=== PATIENT | male | born 1960 | race Caucasian/White ===

== ENCOUNTER 2023-12-08 13:51 | Inpatient (IN) | payer MEDICARE, OTHER, SELFPAY ==
[2023-12-08] VITALS (18 sets, daily range): BP systolic 109–170; BP diastolic 68–106; BMI 29.7; BMI 29.0
--- NOTE | 2023-12-08 11:30 | ED.PDOC.TRB ---
ED Provider Triage
-
Patient seen by provider in Triage?: Seen in Triage
Initial rapid assessment performed in triage to facilitate ED workup
63-year-old male with history of coronary artery disease status post CABG x 5 and subsequent stenting presents to the emergency department for evaluation of exertional chest discomfort and shortness of breath ongoing for the past month. Symptoms
remain somewhat present at rest and do not fully resolve. Currently reports mild shortness of breath but no chest pain. Feels comparable to his prior angina.
GEN: Well appearing, NAD, WDWN
HEENT: Oral mucosa moist, no scleral icterus
Cardiac: Regular rate
Lung: No respiratory distress, no tachypnea
MSK: No gross deformity or injuries
Skin: Good color, no pallor or jaundice, no rashes
Neuro: AO x3, moves all extremities freely
Psych: Calm, cooperative
Assessment/plan: Unstable angina. Initial EKG appears nonischemic. Check cardiac labs
[2023-12-08 11:46] LABS: % Basophils 0.7 % (0-2); % Eosinophils 6.7 % (0-6); % Immature Granulocytes 0.2 % (0-0.5); % Monocytes 7.7 % (1.7-9.3); % Neutrophils 65.7 % (42.2-75.2); Absolute Basophils 0.1 10^3/uL (0-0.2); Absolute Eosinophils 0.6 10^3/uL (0-0.7); Absolute Lymphocytes 1.7 10^3/uL (1.2-3.4); Absolute Monocytes 0.7 10^3/uL (0.1-0.6); Absolute Neutrophils 5.9 10^3/uL (1.4-6.5); Hematocrit 43.5 % (39.0-52.0); Hemoglobin 14.8 g/dL (13.0-18.0); Mean Corpuscular Hgb 30.1 pg (27.0-31.0); Mean Corpuscular Volume 88.4 fL (80.0-94.0); Mean Platelet Volume 8.8 fL (7.4-10.4); Nucleated Red Blood Cells % 0 % (-); Platelet Count 253 10^3/uL (130-400); Red Blood Cell Count 4.92 10^6/uL (4.70-6.10); Red Cell Dist. Width 13.2 % (11.5-14.5)
[2023-12-08 12:19] LABS: ALT (SGPT) 22 U/L (0-50); AST (SGOT) 28 U/L (17-59); Albumin 4.6 g/dl (3.5-5.0); Alkaline Phosphatase 59 U/L (38-126); Blood Urea Nitrogen 21 mg/dl (9-20); Calcium 9.5 mg/dl (8.4-10.2); Carbon Dioxide 22 mmol/L (22-30); Chloride 104 mmol/L (98-107); Glucose 104 mg/dl (70-99); Potassium 4.3 mmol/L (3.5-5.1); Sodium 140 mmol/L (135-145); Total Bilirubin 0.7 mg/dl (0.2-1.3); Total Protein 7.2 g/dl (6.3-8.2); Troponin I 0.214 ng/ml; eGFR > 60.00
--- NOTE | 2023-12-08 12:53 | ED.GENMED ---
History of Present Illness
General
Chief Complaint: Breathing Problem
Time Seen by Provider: 12/08/23 12:21
History of Present Illness
History of Present Illness:
63-year-old man with history of CAD with stents and bypasses, hypertension presenting to the emergency department chest pain. Patient states for the past month he has been having chronic chest pain that is worse with exertion. Has been having some
dyspnea on exertion as well. It does feel similar to when he needed his stents before. He is having some left arm numbness tingling. He did see Dr. Lutz and had a carotid ultrasound done which was normal. He saw him today in the office and
patient was brought in here given the symptoms. He did take aspirin. He did not take any nitroglycerin.
Past History
Past History
ED Past Medical History: CAD, HTN, Hypercholesterolemia, CA and Other (Cervical disc disease, pancreatitis)
ED Past Surgical History: Cardiac (CABG, STENTs), Orthopedic (Cervical laminectomy 12/06/2013, right total knee replacement) and Tonsilectomy
Social History
Tobacco: Former smoker
Alcohol: None
Drug: None
Personal:
Living: with family
Employment: Employed
Family History
Family History: Early CAD and Other (CAD, hypertension, gallbladder issues)
Phy Exam
Physical Exam
Physical Exam:
GENERAL: in no acute distress
HEENT: normocephalic, extraocular movements intact, moist oral mucosa
NECK: normal inspection
RESPIRATORY: no respiratory distress, clear to auscultation bilaterally
CARDIOVASCULAR: regular rate and rhythm, 2+ radial pulses bilaterally
ABDOMEN/: soft, non-distended, non-tender to palpation, no rebound or guarding
EXTREMITIES: non-tender, no edema/swelling
NEUROLOGIC: awake and alert, moves all extremities
SKIN: warm
Scores
Heart Failure Risk
Heart Failure Risk Score: Not Applicable
Course
Orders/Labs/Results
Orders:
Orders
12/08/23 11:21
EKG [Electrocardiogram (*1)] Urgent
Reason for Study: Shortness of Breath
CR Chest - 2 Views Urgent
Comment:
Reason For Exam: short of breath
12/08/23 11:22
EKG- Treatment ONCE
12/08/23 11:37
Complete Blood Count/With Diff Urgent
Comprehensive Metabolic Panel Urgent
Prothrombin Time Urgent
Troponin I Urgent
12/08/23 12:21
Electrocardiogram (*1) Urgent
Reason for Study: Chest Pain
12/08/23 12:22
EKG- Treatment ONCE
12/08/23 12:50
Nitroglycerin Sublingual [Nitrostat (Sublingual)] 0.4 mg SL [id number] PRN
12/08/23 12:57
PTT Urgent
Comment: Obtain baseline before beginning heparin infusion if not already collected
Heparin 4,000 units IV NOW STA
Pharmacy Request to Place See Dose Instructions PO NOW STA
Discontinue all Active Warfarin orders?: Yes
Nursing to Place Non Medication Order As Directed
Physician Order: PTT 6 hours after initial start of Heparin infusion
12/08/23 12:59
Portable Chest Xray [CR Chest Portable - 1 View] Urgent
Comment:
Reason For Exam: chest pain
Reason Study Needs to be Portable: Patient Unstable
12/08/23 13:00
Heparin 66162 Units/250 ml 25,000 units in 250 ml IV PER PROTOCOL
Weight to be used for heparin protocol in kilograms (kg):: 102
Protocol:: Cardiac Tx/Acute Coronary
PTT Goal Range to be used:: PTT 73 to 111 seconds
Order type:: Initial
INITIAL Infusion Dose (UNITS/KG/hr) & then follow protocol:: 15 units/kg/hr
Infusion Dose in UNITS/hr & then follow protocol (UNITS/hr):: 1,500
INFUSION RATE in mL/hr & then follow protocol (mL/hr):: 15
PTT less than or equal to 64 seconds:: Increase rate by 200 units/hr (+ 2 mL/hr)
PTT 64.1 to 72.9 seconds:: Increase rate by 100 units/hr (+ 1 mL/hr)
PTT 73 to 111 seconds:: Target Range. No change in rate.
PTT 111.1 to 130.9 seconds:: Decrease rate by 100 units/hr (- 1 mL/hr)
PTT 131 to 199.9 seconds:: HOLD for 1 hr. Then decrease rate by 200 units/hr (- 2 mL/hr)
PTT greater than or equal to 200 seconds:: HOLD for 2 hrs & Notify Provider. Then decrease by 200 units/hr (-
2 mL/hr)
Lab follow-up:: Each change, PTT q6h until 2 consecutive are therapeutic. Then PTT
daily.
Pharmacy Request to Place See Dose Instructions IV DIRECTED
Abnormal Lab Results
12/08/23
11:37
Absolute Monos (auto) 0.7 H 10^3/uL
(0.1-0.6)
Lymphocytes % 19.0 L %
(20.5-51.1)
Eosinophils % 6.7 H %
(0-6)
BUN 21 H mg/dl
(9-20)
Glucose 104 H mg/dl
(70-99)
Troponin I 0.214 H* ng/ml
12/08/23 11:37
12/08/23 11:37
Vital Signs
Initial and Last Documented VS:
Initial Vital Signs
Pulse Resp BP Pulse Ox
79 20 140/86 95
12/08/23 11:28 12/08/23 11:28 12/08/23 11:28 12/08/23 11:28
Last Documented Vital Signs
Temp Pulse Resp BP Pulse Ox
97.6 F 71 14 138/82 98
12/08/23 11:32 12/08/23 12:33 12/08/23 12:33 12/08/23 12:00 12/08/23 12:44
MDM/Problems Addressed
Differential Diagnosis Includes:
63-year-old male with history of CAD with stents and bypasses, hypertension presenting to the emergency department with chest pain that is exertional as well as dyspnea on exertion. Vitals here are unremarkable and exam is reassuring. Initial EKG
per my interpretation without any ST changes. He does state that is very similar to when he required stents. I am concerned about ACS versus NSTEMI. History and exam not consistent with dissection or PE. Initial blood work obtained prior to
evaluation does show significantly elevated troponin. Will obtain delta. I did repeat EKG and there were no new changes per my interpretation. Chest x-ray pending. Will give nitro. He did take aspirin this morning. Discussed with cardiology
who is in agreement with heparin drip. Discussed with hospitalist team who accepted patient to their service
*Critical Care Note
Total Time (30-74mins, 75-104mins- exclusive of procedures): Not Applicable
ED Attending Note
-
Portions of this chart may have been created with voice recognition software.� Occasional wrong word or��sound alike� substitutions may have occurred due to the inherent limitations of voice recognition software.
Discharge Plan
Departure
Patient Disposition: Admit
Date of Disposition: 12/08/23
Time of Disposition: 13:01
Presentation/result/management discussed w/ accepting MD/DO: Hospitalist
Discharge Problem:
Acute non-ST elevation myocardial infarction (NSTEMI)
Prescriptions:
No Action
metoprolol tartrate 25 MG tablet
25 mg PO DAILY
aspirin 81 MG tablet,chewable
81 mg PO DAILY
fluoxetine 20 MG capsule
60 mg PO DAILY
amlodipine 10 MG tablet
10 mg PO DAILY Qty: 30 0RF
gabapentin 100 MG capsule
100 mg PO TID Qty: 90 0RF
rosuvastatin [Crestor] 20 MG tablet
20 mg PO DAILY Qty: 30 0RF
prednisone 20 MG tablet
20 mg PO DAILY
codeine-guaifenesin 5 ML liquid
5 ml PO PRN PRN (Reason: cough)
levofloxacin [Levaquin] 500 MG tablet
500 mg PO DAILY
albuterol sulfate [ProAir HFA] 8.5 GM HFA aerosol inhaler
2 puff IH Q4HPRN PRN (Reason: asthma)
Calcium
1 tab PO DAILY
Oxycodone-Acetaminophen 5-325
DAILY
ondansetron 4 mg tablet,disintegrating
4 mg PO DAILY PRN (Reason: nausea and vomiting) 5 Days Qty: 14 0RF
Interventions
Interventions:
*Risk Screen - Suicide Last Done: 12/08/23 11:28
*General Assessment Last Done: 12/08/23 11:28
*Neglect/Abuse Screening Last Done: 12/08/23 11:28
ED- Fall Risk Assessment Last Done: 12/08/23 12:44
ED- Cardiac Assessment Last Done: 12/08/23 12:44
ED- Pulmonary Assessment Last Done: 12/08/23 12:44
Discharge Date and Time
Print Language: CROATIAN
--- NOTE | 2023-12-08 12:57 | CON.CAR ---
Addendum entered and electronically signed by Casey Hickey MD 12/08/23 15:03:
I saw and examined the patient.
The KIDNEY PULLER or PA's note was reviewed and I agree with the note.
Comment: General: Well developed, well nourished in NAD.
Neck: Supple, no JVD, HJR, carotids +2 B/L, no bruits bilaterally.
Heart: Non displaced PMI, RRR, no murmurs, No S3, S4, no rubs.
Lungs: Scattered rhonchi
Abdomen: Normal bowel sounds, soft, non-tender, non-distended.
Extremities: No clubbing, cyanosis or edema bilaterally.
Neuro: Grossly nonfocal, awake, alert and oriented x3.
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
chronic pain syndrome on oxycodone. He has had chest discomfort over the past several days. Heaviness is worse with exertion and can be worse with taking a deep breath. He had a severe episode approximately 2 weeks ago. He was being seen by
vascular and noted chest discomfort and was sent to the ER. Troponin was 0.21. He has discomfort at present but feels it may be due to not getting his oxycodone
He is ruled in for non-STEMI. He has persistent chest discomfort. He has multiple cardiac prior events and strong family history of CAD and noncompliant with follow-up with no office visit since 2020.
Will start IV heparin. Explained the risk and benefits of cardiac catheterization and stenting in detail and agrees to proceed. Reviewed with interventional cardiology.
Original Note:
Consultation
Consultation Request
Date/Time Consultation Requested: 12/08/23, 1255
Date/Time Consultation Performed: 12/08/23 1258
Requesting Provider: Hazel Brandon,
Performing Provider: PEE Gallardo for Dr Hickey
Reason for Consultation: chest pain
Medical History
-
History of Present Illness:
63-year-old male with history of coronary artery disease status post FL and CABG x 5 2012 in [place] (SVG-RCA; SVG-OM2; GOLDSTEIN-LAD; SVG-PDA and SVG-LAD) (had apical mural thrombus following FL and cardiomyopathy which is now resolved), cardiac
stents on 11/21/19 (S/P PCI with BENNIE to prox. circ and PTCA to OM1) at [facility]; mixed HLD, hypertension, carotid stenosis, chronic pain syndrome on Oxycodone. For the past month he's had a constant chest heaviness substernally, radiating to the
left shoulder and back. Heaviness is worse with exertion, and at the point he is having it with any activity. Pain worse with deep inspiration. He has had associated shortness of breath, and for the past 2 days has had diaphoresis and nausea. He
has intermittant chest fluttering, no syncope. He was at a vascular appointment today for surveillance follow-up of his carotid stenosis and reported shortness of breath, chest tightness, and heart skipping. He was advised to go to the ED for
evaluation. He currently reports 7/10 chest pain, he rec'd one SL NTG with no improvement in symptoms. He rec'd his usual ASA
initial troponin 0.214
Initial EKG 12/08/2023 1126: Normal sinus rhythm inferior infarct cannot rule out anterolateral infarct
Repeat EKG 12/08/2023 1232: Normal sinus rhythm inferior infarct cannot rule out anterolateral infarct
Compared both EKGs to most recent EKG 02/02/2021: No significant change
He previously saw Dr Young but has not seen a singe winder in a couple years. He has been on ASA, Plavix, Toprol.
PMH:
Coronary artery disease status post FL/CABG x , 2012, stenting BENNIE prox CIRC, PTCA OM
Hypertension
hyperlipidemia
Apical mural thrombus following FL-previously on Warfarin- stopped warfarin on his own in 2016 per chart review)
cardiomyopathy following FL, CABG 2012 - resolved
Left carotid stenosis
chronic pain syndrome due to neck/back pain- oxycodone q 4 hrs
pancreatitis 12/10- admission to
Past Medical History
Past Medical History: Other (as above)
Past Surgical History: Orthopedic (R knee), Tonsilectomy and Other (hernia, herniated discs)
Social History
Tobacco: Former Smoker (quit 2012, smoked 20 yrs, 1.5 ppd)
Personal:
Family History
Family History: Early CAD (father FL 35) and CAD (mother FL 65, brother with stents)
Allergies / Home Medications
Allergy/AdvReac Type Severity Reaction Status Date / Time
No Known Allergies Allergy Verified 12/08/23 11:33
�Medication �Instructions �Recorded �Confirmed �Type
metoprolol tartrate 25 mg tablet 25 mg PO DAILY Arrhythmia 11/21/19 02/02/21 History
aspirin 81 mg chewable tablet 81 mg PO DAILY Blood clot 12/06/19 02/02/21 History
prevention/tx
fluoxetine 20 mg capsule 60 mg PO DAILY Mental 12/06/19 02/02/21 History
Health/Anxiety
amlodipine 10 mg tablet 10 mg PO DAILY #30 tabs 11/11/20 02/02/21 Rx
gabapentin 100 mg capsule 100 mg PO TID #90 caps 11/11/20 02/02/21 Rx
rosuvastatin 20 mg tablet (Crestor) 20 mg PO DAILY #30 tabs 11/11/20 02/02/21 Rx
Calcium 1 tab PO DAILY Supplement 02/02/21 02/02/21 History
Oxycodone-Acetaminophen 5-325 DAILY Pain 02/02/21 History
albuterol sulfate 90 mcg/actuation 2 puff IH Q4HPRN PRN asthma 02/02/21 02/02/21 History
aerosol inhaler (ProAir HFA)
codeine 10 mg-guaifenesin 100 mg/5 5 ml PO PRN PRN cough 02/02/21 02/02/21 History
mL oral liquid
levofloxacin 500 mg tablet 500 mg PO DAILY Infection 02/02/21 02/02/21 History
(Levaquin)
prednisone 20 mg tablet 20 mg PO DAILY Lung/breathing 02/02/21 02/02/21 History
issues
ondansetron 4 mg disintegrating 4 mg PO DAILY PRN nausea and 12/17/21 Rx
tablet vomiting 5 days #14 tabs
Review of Systems
-
History Source: Patient
All other systems: Negative unless noted
Physical Exam
Vital Signs
Temp Pulse Resp BP Pulse Ox
97.6 F 71 14 138/82 98
12/08/23 11:32 12/08/23 12:33 12/08/23 12:33 12/08/23 12:00 12/08/23 12:44
Lab Results
12/08/23 11:37
12/08/23 11:37
Troponin I 0.214 ng/ml H* 12/08/23 11:37
Impression / Plan
-
PCP:Waldemar Moser MD
Primary singe winder: none current, former Dr Young
Impression:
chest pain x 1 month
CAD s/p CABG 2012 and stenting 10/2019
elevated troponin
FL 2012
cardiomyopathy 2012-resolved
HTN
hyperlipidemia
apical thrombus 2012
carotid stenosis
chronic pain syndrome
Previous cardiac diagnostic studies:
cardiac cath 11/21/2019 (): grafts: GOLDSTEIN-LAD patent, SVG-RCA 50% prox, SVG-OM2 patent, SVG-poss PDA 100% occluded, SVG-poss apical LAD 100% occluded
[place] vessels: D1 90% mid- BENNIE placed; OM1 90% prox- PTCA; circ beyond OM1 80%, RCA 100%,distal fills via patent SVG-RCA
Echo: 01/2019: EF 55-60%, mild cLVH, focal apical AK w/ thrombus noted, [place] 4.3- unchanged in size
Echo 07/2013: laminated apical thrombus EF 45-50%
Echo 06/2014 EF 50-55%, apical AK with repaired apical thrombus in LV
Echo 02/25/16: EF 55%
Plan:
CAD -
pt with one month history of progressively worsening chest heaviness, worse with exertion. Initial troponin elevated. Initial EKG without change from baseline. Admit for ACS, NSTEMI
-trend troponins and EKG
-starting heparin
-likely will need cardiac cath
-check echo
-SL NTG
-ASA/Plavix
-beta lc
-eventually start statin
apical thrombus
-occurred after FL in 2012, was on Warfarin in distant past, has been off since at least 2015 with stable appearing thrombus on echos
-checking echo
HTN-
-BPs currently well controlled
-cont Metoprolol
carotid stenosis -
-follows with Dr Lutz - had f/u today, sounds like stable carotid dz but will get records.
chronic pain
-pt reports he's on oxycodone q 4 hr for cervical spine pain, s/p previous fusion C6-C7
Data Reviewed
-
EKG: Tracing Personally Visualized and interpreted
Medical Tests (Nuc Med, Echo etc): Report Reviewed by me
Labs: Labs Reviewed by me
[2023-12-08] MEDS: NITROSTAT (SUBLINGUAL) 0.4 MG SL (13:04)
--- NOTE | 2023-12-08 13:05 | HPS.HSE ---
Family Physician
-
Family Physician:
Chief Complaint
-
Exertional chest pain
History of Present Illness
HPI: 63-year-old male with PMH CAD s/p CABG and subsequent cardiac stenting, hypertension, hyperlipidemia; p/w exertional chest discomfort and shortness of breath ongoing for the past month.
His symptoms remain at rest today hence presented to the ER. He states that this feels like his prior myocardial infarction.
He denies to other symptoms.
Admit for CP for ACS work up.
Medical History
Past Medical History
Past Medical History: Reports Other
Additional Past Medical History:
CAD s/p CABG and subsequent cardiac stenting
hypertension
hyperlipidemia
Past Surgical History: Reports Other
Additional Past Surgical History:
Right knee replacement
Spinal fusion
Hernia surgery
Nasal septum repair
Right ankle surgery
Cardiac bypass surgery
Social History
Tobacco: Former Smoker
Alcohol: Former
Family History
Family History: Not pertinent
Allergies / Home Medications
Allergies reflects when Allergies were last updated in [facility].
Home Medications with original date entered in [facility]
Allergy/Medication List:
Allergies
Allergy/AdvReac Type Severity Reaction Status Date / Time
No Known Allergies Allergy Verified 12/08/23 11:33
Home Medications
aspirin 81 mg chewable tablet 81 mg PO DAILY Blood clot prevention/tx 12/06/19
fluoxetine 20 mg capsule 60 mg PO DAILY Mental Health/Anxiety 12/06/19
Metoprolol 25 mg PO DAILY 12/08/23
clopidogrel 75 mg tablet (Plavix) 75 mg PO DAILY 12/08/23
oxycodone 15 mg tablet 15 mg PO Q4HPRN PRN severe pains 12/08/23
Review of Systems
-
Cardiac: Reports See HPI and Chest Pain
Physical Exam
Vital Signs
Vital Signs
Temp Pulse Resp BP Pulse Ox
36.4 C 71 14 114/71 98
12/08/23 11:32 12/08/23 12:33 12/08/23 12:33 12/08/23 13:04 12/08/23 12:44
Physical Exam
General: Well Developed, Well Nourished, No Apparent Distress, Comfortable and Conversant
HEENT: NormoCephalic, Moist mucous membranes, Atraumatic, Nose Appears Normal and Ears Appear Normal
Respiratory: Clear and Non Labored Respirations; No Accessory Resp Muscle Use
Cardiac: S1/S2 and Regular Rhythm; No Murmur or Rub
GI: Soft, Non Tender, Non Distended and Normal Bowel Sounds; No Organomegaly
Rectal: Deferred by Provider
Musculoskeletal: No Clubbing, No Cyanosis and No Edema
Skin: No Rash
Neuro: Awake and Alert
Psych: Calm and Intact Judgment/Insight
Laboratory Results
-
12/08/23 11:37
12/08/23 11:37
Laboratory Results
PT 13.0 Sec (11.4-14.6) 12/08/23 11:37
INR 1.00 12/08/23 11:37
Total Bilirubin 0.7 mg/dl (0.2-1.3) 12/08/23 11:37
AST 28 U/L (17-59) 12/08/23 11:37
ALT 22 U/L (0-50) 12/08/23 11:37
Alkaline Phosphatase 59 U/L (38-126) 12/08/23 11:37
Troponin I 0.214 ng/ml H* 12/08/23 11:37
Data Reviewed
-
Lab Data: Labs Reviewed by me
Impression/Plan
-
HPI: 63-year-old male with PMH CAD s/p CABG and subsequent cardiac stenting, hypertension, hyperlipidemia; p/w exertional chest discomfort and shortness of breath ongoing for the past month.
His symptoms remain at rest today hence presented to the ER. He states that this feels like his prior myocardial infarction.
He denies to other symptoms.
Admit for CP for ACS work up.
A/P:
# CP likely due to ACS/NSTEMI
# Elevated troponin likely NSTEMI
s/p SL nitro
start heparin drip per Card
Continue prior to admission aspirin, but will hold off on prior to admission Plavix for now given patient already on heparin drip.
EKG unrevealing
Troponin 0.214, cont to trend
Check echo
Card CS
# Essential hypertension
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
# Hyperlipidemia
DVT ppx: currently hep drip
FC
[2023-12-08 13:27] LABS: APTT 28.5 Sec (23.4-35.0)
[2023-12-08] MEDS: HEPARIN 4000 UNITS IV (13:58)
[2023-12-08] MEDS: HEPARIN 25000 UNITS/250 ML IV (13:59)
[2023-12-08 15:35] LABS: ACT-LR - POC 173 Seconds (116-155)
[2023-12-08 15:57] LABS: ACT-LR - POC 250 Seconds (116-155)
[2023-12-08 16:08] LABS: Troponin I 0.574 ng/ml
[2023-12-08 16:16] LABS: ACT-LR - POC 290 Seconds (116-155)
[2023-12-08 16:57] LABS: ACT-LR - POC 297 Seconds (116-155)
--- NOTE | 2023-12-08 17:26 | ITS.CL.CATH ---
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
Cardiac Catheterization
Procedure Report:
LEFT HEART CATHETERIZATION AND CORONARY INTERVENTION
Date of Procedure: December 08, 2023
Referring: Dr. Casey Hickey
PROCEDURES:
1. Left heart catheterization with coronary and single-plane left ventriculography
2. Ascending aortography to locate origin of saphenous vein bypass graft
3. Successful stenting of the SVG-OM2 with a 3.5 x 30 mm [place] stent using a 5.0 mm Spider filter wire (the FilterEZ 2.5-5.5 mm wire would not cross). The stent was postdilated with a 3.5 mm NC balloon in the proximal to midportion
INDICATION: This is a 63-year-old gentleman with a prior history of coronary artery disease and emergent coronary artery bypass surgery in a hospital in [facility] in 2012. The postoperative course was complicated by an apical LAD
infarction possibly related to occlusion of the apical vein graft but subtended a small area of myocardium. He reportedly had bypass grafting to 5 vessels with a GOLDSTEIN-LAD, SVG-RCA, SVG-OM, SVG-diagonal, and SVG-apical LAD (?) in October 2019 he
presented with chest discomfort and abnormal stress test and underwent stenting of a diagonal branch with a 2.5 x 32 mm Promus stent and stenting of the mid circumflex with a 2.5 x 12 mm Promus stent. He now presents to [facility] for a
vascular surgical appointment and reported chest discomfort starting approximately 2 weeks ago. He states that for 48 hours he had severe discomfort but since then had experienced low-grade persistent chest pain. His troponin was found to be
mildly elevated and he is now referred for coronary angiography.
ACCESS: Right common femoral artery, 6 [place] sheath using ultrasound guidance
HEMODYNAMICS : (mmHg)
AO (s/d) : 146/79
LV (s/d) : 143/14
LVEDP : 30
CORONARY ANGIOGRAPHY
Dominance: Right
LEFT MAIN: Normal
LEFT ANTERIOR DESCENDING: The LAD arises normally from the left main and runs in the anterior interventricular groove. The LAD is occluded just beyond the diagonal branch. The distal vessel is noted to fill anterograde beyond the CHING graft
anastomosis and retrograde to the site of occlusion. The CHING graft appears widely patent. The proximal LAD before the diagonal branch has a 50-60% stenosis. The first diagonal branch has a long stented segment in its midportion. The stent is
widely patent.
CIRCUMFLEX: The circumflex supplies a small OM1 and terminates in a small to medium caliber OM 3. There is a stent in the mid circumflex extending to OM 3 and has a 95% segment of in-stent restenosis involving the distal one third of the stented
segment.
RIGHT CORONARY ARTERY: 100% occluded proximally. The distal vessel fills via a patent SVG
GRAFT ANGIOGRAPHY:
1. SVG-OM 2: The SVG-OM 2 has tandem 95% and 90% stenoses in the proximal one third of the SVG. There is HILDA II-HILDA-3 flow distally. The SVG is anastomosed to the larger of the OM 2 daughter branches which fills antegrade and retrograde to the
SVG anastomosis. A smaller daughter branch was noted to fill on the previous study and now appears to be occluded.
2. SVG-RCA: The saphenous vein graft was cannulated with an MPA1. The vein graft is moderately degenerative with ectatic distal segment. The distal RCA fills antegrade beyond the SVG anastomosis
3. SVG-diagonal (presumed): 100%
4. SVG-apical LAD : previously found to be 100% occluded
5. GOLDSTEIN-LAD: The GOLDSTEIN graft to the mid LAD is widely patent. There is antegrade filling of a small LAD which approaches and wraps around the apex as a very small caliber vessel. There is retrograde filling of the LAD back to the site of occlusion
in the mid vessel beyond the first diagonal branch
LEFT VENTRICULOGRAPHY: Left ventriculography was performed in an KERR projection. The digital single-plane left ventricular ejection fraction is visually estimated at 50% with anteroapical and inferior apical akinesis. There is anterolateral
moderate hypokinesis
ASCENDING AORTOGRAPHY ascending aortography was performed in slight KUMAR projection in order to identify the origin of the SVG-RCA. The ascending aorta appeared to be of normal caliber and the origin of the SVG-RCA was easily identified.
ANGIOPLASTY PROCEDURE DETAIL: Following review of the diagnostic catheterization films the decision was made to proceed with percutaneous intervention of the high-grade stenosis in the saphenous vein graft-OM 2. Tandem tandem 95% and 90% stenoses
were noted. Intravenous heparin was administered and the ACT was monitored throughout the procedure. The origin of the SVG was cannulated with a 6 [place] CHING catheter. We initially attempted to cross the stenotic segment with a 3.5-5.5 Filter EZ
wire. The tip of the wire could cross the high-grade stenosis, however, the entirety of the wire could not pass and was removed. A BMW guidewire was then advanced across the stenotic segment of the vein graft and into the distal vessel. A 5.0 mm
Spider filter wire was advanced to the high-grade stenosis, however, would not cross. At this point balloon predilation was performed using a 2.25 x 20 mm [place] balloon. Fortunately, the patient tolerated the balloon inflations well and
anterograde flow persisted in the vein graft to OM 2. The 5.0 mm Spider filter wire could now easily cross the predilated segment in the vein graft and was advanced to the distal vessel. The filter was uncovered and allowed to expand in the distal
portion of the saphenous vein graft. A 3.5 x 30 mm Abhi stent was then advanced over the guidewire and positioned with angiographic and fluoroscopic guidance. The stent was implanted in the saphenous vein graft at 14 lalita before the balloon
achieved full expansion. The proximal to midportion of the stented segment was postdilated with a 3.5 mm noncompliant balloon with an excellent angiographic result. The filter wire was then removed.
RADIATION SUMMARY: Fluoro Time (min): 28.7, Dose (mGy): 1971, DAP (Gy.cm2) : 139
Closure Device: 6 [place] Angio-Seal RFA
CONCLUSION
1. Successful stenting of SVG-OM 2 with a 3.5 x 30 mm [place] stent postdilated with a 3.5 mm NC balloon
2. Residual coronary disease in the [place] circumflex with in the distal one third of the previously placed stent where high-grade in-stent restenosis is now noted
3. The GOLDSTEIN-LAD and SVG-RCA remained patent
RECOMMENDATIONS
1. Uninterrupted dual antiplatelet therapy for 12 months
2. Probable staged coronary intervention to the mid circumflex/OM 3 area of in-stent restenosis
3. Stressed the need for cardiac follow-up. Needs statin therapy. Needs aggressive blood pressure control.
Copy to: Dr. Casey Hickey
[2023-12-08] MEDS: LIPITOR 40 MG PO (17:56)
[2023-12-08] MEDS: ROXICODONE 15 MG PO ×2 (17:59→22:41)
--- NOTE | 2023-12-08 18:39 | PTCARENOTE ---
Rec'd pt from slab installer at 1745 on TELE monitor in NSR with elevated bp and AAAO*3. Pt complained of right groin pain, rating pain at a 9/10. Pt given pain medication per order (see mar). R groin CDI. Pt on strict bed rest and agreed to not get
up without staff assistance. Pt resting in bed call hernandez in reach.
[2023-12-08] MEDS: TYLENOL 650 MG PO (22:41)
--- NOTE | 2023-12-08 23:36 | PTCARENOTE ---
Pt. received at change of shift. Pt. seen and assessed in room. Pt. AOx3, VS WNL. R femoral site c/d/i. Pt. complaining of 'bearable' pain at right femoral site. Pt. verbalizes understanding of plan of care. Continuing to monitor the patient at this
time.
[2023-12-08 23:51] LABS: Troponin I 0.996 ng/ml
--- NOTE | 2023-12-09 03:01 | DOWNTIME ---
There was a [employer]acht[employer] Client Wine Steward/Stewardess Downtime on 11/11/2023 from 0100 to 11/11/2023 at 0252. Downtime documentation of patient's care, including medication administrations, has been reconciled in the electronic record per guidelines. Refer to the
patient's paper chart under the miscellaneous tab to see printed paper medication records and downtime forms.
[2023-12-09] MEDS: ROXICODONE 15 MG PO ×5 (03:24→20:40)
[2023-12-09 03:28] VITALS: BP 133/89
[2023-12-09 04:25] LABS: Hematocrit 40.1 % (39.0-52.0); Hemoglobin 14.2 g/dL (13.0-18.0); Mean Corp Hgb Conc. 35.4 g/dL (33.0-37.0); Mean Corpuscular Hgb 31.3 pg (27.0-31.0); Mean Corpuscular Volume 88.5 fL (80.0-94.0); Mean Platelet Volume 8.9 fL (7.4-10.4); Platelet Count 199 10^3/uL (130-400); Red Blood Cell Count 4.53 10^6/uL (4.70-6.10); Red Cell Dist. Width 13.2 % (11.5-14.5); White Blood Cell Count 8.2 10^3/uL (4.8-10.8)
[2023-12-09 04:41] LABS: Blood Urea Nitrogen 16 mg/dl (9-20); Carbon Dioxide 21 mmol/L (22-30); Chloride 105 mmol/L (98-107); Estimated Creatinine Clearance 83 ml/min; Glucose 104 mg/dl (70-99); HDL Cholesterol 36 mg/dl; LDL Cholesterol, Calculated 79 mg/dl; Magnesium 2.3 mg/dl (1.6-2.3); Potassium 4.3 mmol/L (3.5-5.1); Sodium 138 mmol/L (135-145); Total Cholesterol 171 mg/dl (50-199); Triglyceride 281 mg/dl (10-149); Very Low Density Lipoprotein 56 mg/dl (0-30); eGFR > 60.00
[2023-12-09 07:46] LABS: ACT-LR - POC > 397 Seconds (116-155)
[2023-12-09] MEDS: LOW STRENGTH ASPIRIN 81 MG PO (07:57)
[2023-12-09] MEDS: TOPROL XL 25 MG PO (07:57)
[2023-12-09] MEDS: PROZAC 60 MG PO (07:57)
[2023-12-09] MEDS: PLAVIX 75 MG PO (07:57)
--- NOTE | 2023-12-09 08:42 | W.PN.HOSP.TC ---
Today's Communication/Plan
-
see A/P
Assessment / Plan
Assessment / Plan
HPI: 63-year-old male with PMH CAD s/p CABG and subsequent cardiac stenting, hypertension, hyperlipidemia; p/w exertional chest discomfort and shortness of breath ongoing for the past month.
His symptoms remain at rest today hence presented to the ER. He states that this feels like his prior myocardial infarction.
He denies to other symptoms.
Admit for CP for ACS work up.
A/P:
# CP due to ACS/NSTEMI
# Elevated troponin 2/2 NSTEMI
s/p SL nitro
s/p heparin drip
s/p cardiac cath: Successful stenting of SVG-OM 2 with a 3.5 x 30 mm Abhi stent postdilated with a 3.5 mm NC balloon. Residual coronary disease in the [place] circumflex with in the distal one third of the previously placed stent where high-grade
in-stent restenosis is now noted. The GOLDSTEIN-LAD and SVG-RCA remained patent
Cont uninterrupted dual antiplatelet therapy for 12 months with ASA and Plavix
Plan for staged coronary intervention to the mid circumflex/OM 3 area of in-stent restenosis
Started Lipitor 40 mg daily
Can follow echo report
Card on board
# Essential hypertension
cont LIQUID COMPOUNDER Metoprolol
# Hyperlipidemia
LDL 79
Started Lipitor 40 mg daily
DVT ppx: Lovenox SQ
FC
Anticipated Discharge: > 48 hours
Subjective/Interval History
-
Date of Service: December 09, 2023
Objective Data
-
Labs:
Laboratory Results
12/09/23
03:43
WBC 8.2
Hgb 14.2
Hct 40.1
Plt Count 199 D
Sodium 138
Potassium 4.3
Chloride 105
Carbon Dioxide 21 L
BUN 16
Creatinine 1.0
Glucose 104 H
Calcium 9.0
Vital Signs:
Vital Signs
Temp Pulse Resp BP Pulse Ox
36.6 C 65 20 133/89 97
12/09/23 07:53 12/09/23 07:00 12/09/23 07:53 12/09/23 03:28 12/09/23 08:11
I&O
12/08/23 12/09/23 12/10/23
06:59 06:59 06:59
Intake Total 1005 / 1005
Output Total 600 / 600
Balance 405 / 405
Review of Systems
-
All other systems: Reviewed and negative
Cardiac: Denies Chest Pain
Physical Exam
-
General: Well Developed, Well Nourished, No Apparent Distress, Comfortable and Conversant; Negative Respiratory Distress
HEENT: Normocephalic, Atraumatic, Nose Appears Normal and Ears Appear Normal; Negative Oxygen
Respiratory: Clear to Auscultation and Non Labored Respirations; Negative Accessory Resp Muscle Use
Cardiac: Regular Rhythm and S1/S2
GI: Soft, Nontender, Nondistended and Normal Bowel Sounds
Skin: Warm and Dry
Neuro: Awake, Alert, Oriented, AO x 3 and Nonfocal/Grossly Intact
Psych: Calm and Intact Judgement/Insight
Data Reviewed
-
Medical Tests (Nuc Med, Echo etc): Report Reviewed by me (cath report )
Labs: Labs Reviewed by me
--- NOTE | 2023-12-09 09:37 | W.CARD.POSTP ---
Post PCI Follow Up
Procedure
Procedure/Date: 12/08/23 Successful stenting of the SVG-OM2 with a 3.5 x 30 mm [place] stent using a 5.0 mm Spider filter wire (the FilterEZ 2.5-5.5 mm wire would not cross). The stent was postdilated with a 3.5 mm NC balloon in the proximal to
midportion
Subjective: denies cp, sob
Site
Site: Femoral with Internal Closure Device: Right and No ht/bleeding, distal pulses palpable
Tele / EKG
SR no sig ectopy or ST changes
Labs
12/09/23 03:43
12/09/23 03:43
PT 13.0 Sec (11.4-14.6) 12/08/23 11:37
INR 1.00 12/08/23 11:37
APTT Cancelled 12/08/23 20:00
Magnesium 2.3 mg/dl (1.6-2.3) 12/09/23 03:43
Triglycerides 281 mg/dl (10-149) H 12/09/23 03:43
LDL Cholesterol, Calc 79 mg/dl 12/09/23 03:43
VLDL Cholesterol, Calc 56 mg/dl (0-30) H 12/09/23 03:43
HDL Cholesterol 36 mg/dl 12/09/23 03:43
DAPT Medication
DAPT Medication: Aspirin 81mg daily and Clopidogrel 75 mg daily
Plan
Residual ISR Lcx for staged intervention, timing per interventional cardiology
f/u Kandy Cline 12/30 @10:40
--- NOTE | 2023-12-09 10:51 | W.PN.CARDCBS ---
Addendum entered and electronically signed by Omar Pereyra MD 12/09/23 14:02:
I saw and examined the patient.
The Group Dynamics Instructor's note was reviewed and I agree with the note.
Comment:
GEN: No distress, awake, Ox3
HEENT: supple, anicteric, mmm
LUNGS: CTA, no wheezes/rales
CV: Reg, S1/S2, 1/6 syst LSB, no gallop
ABD: soft, BS+, NT/ND
EXT: No edema
NEURO: Gross non-focal
SKIN: No rash
Plan:
Cath results were reviewed. Plan is for PCI of left circumflex over the next 24 to 48 hours.
Continue aspirin and Plavix.
Continue metoprolol and atorvastatin. Eventually restart lisinopril after procedures are finished.
Creat at 1.0.
Original Note:
Today's Communication / Plan
-
Cath today or tomorrow for planned Circ PCI
Eventually start lisinopril
Impression / Plan
-
PCP: Waldemar Moser MD
Primary aquatic director: none current, former Dr Young
Impression:
Chest pain
CAD
s/p CABG with GOLDSTEIN-LAD, SVG-RCA, SVG-OM, SVG-diagonal, and SVG-apical LAD 2012
s/p 2.5 mm Promus BENNIE to mid Circ and 2.5 mm Promus BENNIE to Diag 10/2019
NSTEMI peak Troponin 1.09 and 3.5 mm [place] BENNIE to SVG-OM-2 12/08/23
residual mcgrath Circ disease with in-stent restenosis of previously placed stent for possible PCI 12/09/23
Improved ICM EF previously 45% and now 55%
HTN
Hyperlipidemia
h/o apical thrombus 2012
Carotid stenosis
Chronic pain syndrome
Echo 07/2013: laminated apical thrombus EF 45-50%
Echo 06/2014: EF 50-55%, apical AK with repaired apical thrombus in LV
Echo 02/25/16: EF 55%
Echo 01/2019: EF 55-60%, mild cLVH, focal apical AK w/ thrombus noted, [place] 4.3- unchanged in size
Echo 12/09/23: Report pending
Plan:
-Patient with NSTEMI and peak Troponin 1.09 this admission. Patient had cardiac cath with SVG-OM-2 PCI 12/08/23. 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
-Outpatient doses of aspirin and Plavix have been continued
-Outpatient dose of Toprol XL 25 mg daily has been continued. Cre stable at 1.0 on 12/09/23, but plan is for cath 12/09/23 or possibly 12/10/23 so will hold off on adding lisinopril until after Cre stable following subsequent cath.
-LDL 79. New to atorvastatin 40 mg daily.
-Cardiac rehab consulted
-Patient with h/o apical thrombus after AK in 2012 that was managed with warfarin. Echo pending for 12/09/23.
-Patient previously followed with Dr. Hector Boyd, but states that he is 'between cardiologists' since Dr. Young left a couple of years ago. He has been following with PCP. Will need to confirm a cardiology f/u appt prior to d/c.
Progress Note - Pig Breeder
Subjective
Date of Service: December 09, 2023
Feels well, no chest pain
Objective
Labs:
12/09/23 03:43
12/09/23 03:43
Labs
Hgb 14.2 g/dL (13.0-18.0) 12/09/23 03:43
Hct 40.1 % (39.0-52.0) 12/09/23 03:43
Plt Count 199 10^3/uL (130-400) D 12/09/23 03:43
PT 13.0 Sec (11.4-14.6) 12/08/23 11:37
INR 1.00 12/08/23 11:37
APTT Cancelled 12/08/23 20:00
Sodium 138 mmol/L (135-145) 12/09/23 03:43
Potassium 4.3 mmol/L (3.5-5.1) 12/09/23 03:43
BUN 16 mg/dl (9-20) 12/09/23 03:43
Creatinine 1.0 mg/dL (0.7-1.3) 12/09/23 03:43
Glucose 104 mg/dl (70-99) H 12/09/23 03:43
Troponins
12/08/23 12/08/23 12/08/23
11:37 15:25 18:01
Troponin I 0.214 H* 0.574 H* D 1.090 H* D
12/08/23 12/09/23 12/09/23
23:19 00:00 03:43
Troponin I 0.996 H* Cancelled 0.720 H* D
Vital Signs and I&O:
Vital Signs
Temp Pulse Resp BP Pulse Ox
97.9 F 65 20 133/89 97
12/09/23 07:53 12/09/23 07:00 12/09/23 07:53 12/09/23 03:28 12/09/23 08:39
Vital Signs
Temp Pulse Resp BP Pulse Ox
97.9 F 65 20 133/89 97
12/09/23 07:53 12/09/23 07:00 12/09/23 07:53 12/09/23 03:28 12/09/23 08:39
Intake & Output
12/07/23 12/08/23 12/09/23 12/10/23
06:59 06:59 06:59 06:59
Intake Total 1005 / 1005
Output Total 600 / 600
Balance 405 / 405
Physical Exam
Physical Exam
GEN: NAD. AAOx3
HEENT: EOMI, MMM
LUNGS: CTA B/L, no wheezes or rales
CV: Reg, S1/S2, no murmur
ABD: soft, BS+, NT, ND
EXT: No clubbing, cyanosis, lesions or edema B/L
NEURO: Gross non-focal
SKIN: Warm, dry and pink. No rash
--- NOTE | 2023-12-09 11:02 | CARDSERVLU ---
Echocardiogram with Lumason completed after protocol screening completed. Allergies verified.
Patent IV site: _Right antecubital site clear____
IV site flushed with 0.9% NaCl pre and post administration.
Diluted bolus method utilized to enhance visualization of ventricular garcia.
Total volume given: __4__ mL
Patient tolerated all procedures well without complications.
[2023-12-09 11:59] VITALS: BP 125/71
--- NOTE | 2023-12-09 13:03 | CM ---
CM following for DC planning needs.
Met w/ patient at bedside to complete initial assessment.
Pt. shares that he resides in a private, 2 story home w/ spouse. He is functionally indep. at baseline w/ ADLs, mobility without the use of any assisted device.
Pt. has Rx plan and uses [facility] on [address] in [place].
Anticipated DC plan is for home, no needs.
Will follow.
--- NOTE | 2023-12-09 13:49 | PTCARENOTE ---
Pt received in bed @ 0700. Chronic 8/10 pain in neck and hips and back; PRN Roxicodone 15mg PO Q4H administered as able. SaO2 97% on room air. Sinus rhythm with BBBC on monitoring analyst. ECHO completed at bedside. (R) femoral site C/D/I. (L) AC #22
intact. NPO @ midnight for cath tomorrow.
[2023-12-09 15:10] VITALS: BP 134/73
[2023-12-09] MEDS: SENOKOT-S 1 TABLET PO (15:14)
[2023-12-09] MEDS: MIRALAX 17 GRAMS PO (15:14)
--- NOTE | 2023-12-09 15:45 | PTCARENOTE ---
Pt without observed bowel movement. PRN Senokot and Miralax administered.
[2023-12-09] MEDS: LIPITOR 40 MG PO (17:16)
[2023-12-09] MEDS: LOVENOX 40 MG SC (17:16)
[2023-12-09 18:34] VITALS: BP 134/83
[2023-12-09 22:05] VITALS: BP 131/86
[2023-12-10] VITALS (13 sets, daily range): BP systolic 113–149; BP diastolic 69–109
--- NOTE | 2023-12-10 00:47 | PTCARENOTE ---
Pt remains chest pain free. Sinus on telemetry.
[2023-12-10 03:55] LABS: Hematocrit 40.7 % (39.0-52.0); Mean Corp Hgb Conc. 34.4 g/dL (33.0-37.0); Mean Corpuscular Hgb 29.7 pg (27.0-31.0); Mean Corpuscular Volume 86.2 fL (80.0-94.0); Mean Platelet Volume 8.9 fL (7.4-10.4); Platelet Count 222 10^3/uL (130-400); Red Blood Cell Count 4.72 10^6/uL (4.70-6.10); Red Cell Dist. Width 13.2 % (11.5-14.5); White Blood Cell Count 9.3 10^3/uL (4.8-10.8)
[2023-12-10 04:21] LABS: Blood Urea Nitrogen 15 mg/dl (9-20); Calcium 9.2 mg/dl (8.4-10.2); Carbon Dioxide 23 mmol/L (22-30); Chloride 103 mmol/L (98-107); Estimated Creatinine Clearance 83 ml/min; Glucose 110 mg/dl (70-99); Magnesium 2.3 mg/dl (1.6-2.3); Potassium 4.3 mmol/L (3.5-5.1); Sodium 140 mmol/L (135-145); eGFR > 60.00
--- NOTE | 2023-12-10 08:46 | W.PN.HOSP.TC ---
Today's Communication/Plan
-
see A/P
Assessment / Plan
Assessment / Plan
HPI: 63-year-old male with PMH CAD s/p CABG and subsequent cardiac stenting, hypertension, hyperlipidemia; p/w exertional chest discomfort and shortness of breath ongoing for the past month.
His symptoms remain at rest today hence presented to the ER. He states that this feels like his prior myocardial infarction.
He denies to other symptoms.
Admit for CP for ACS work up.
A/P:
# CP due to ACS/NSTEMI
# Elevated troponin 2/2 NSTEMI
s/p SL nitro
s/p heparin drip
s/p cardiac cath: Successful stenting of SVG-OM 2 with a 3.5 x 30 mm Abhi stent postdilated with a 3.5 mm NC balloon. Residual coronary disease in the [place] circumflex with in the distal one third of the previously placed stent where high-grade
in-stent restenosis is now noted. The GOLDSTEIN-LAD and SVG-RCA remained patent
Cont DAPT with ASA and Plavix
Plan for staged coronary intervention to the mid circumflex/OM 3 area of in-stent restenosis, timing TBD by aircraft engine technician
Started Lipitor 40 mg daily
Can follow echo report
Card on board
# Essential hypertension
cont RESEARCH EXECUTIVE Metoprolol
# Hyperlipidemia
LDL 79
Started Lipitor 40 mg daily
DVT ppx: Lovenox SQ
FC
Anticipated Discharge: > 48 hours
Subjective/Interval History
-
Date of Service: December 10, 2023
Objective Data
-
Labs:
Laboratory Results
12/10/23
03:38
WBC 9.3
Hgb 14.0
Hct 40.7
Plt Count 222
Sodium 140
Potassium 4.3
Chloride 103
Carbon Dioxide 23
BUN 15
Creatinine 1.0
Glucose 110 H
Calcium 9.2
Vital Signs:
Vital Signs
Temp Pulse Resp BP Pulse Ox
36.9 C 69 20 146/91 96
12/10/23 08:01 12/10/23 05:15 12/10/23 08:01 12/10/23 03:33 12/10/23 08:01
I&O
12/09/23 12/10/23 12/11/23
06:59 06:59 06:59
Intake Total 1005 / 1005 1440 / 1440
Output Total 600 / 600
Balance 405 / 405 1440 / 1440
Review of Systems
-
All other systems: Reviewed and negative
Cardiac: Denies Chest Pain
Physical Exam
-
General: Well Developed, Well Nourished, No Apparent Distress, Comfortable and Conversant; Negative Respiratory Distress
HEENT: Normocephalic, Atraumatic, Nose Appears Normal and Ears Appear Normal; Negative Oxygen
Respiratory: Clear to Auscultation and Non Labored Respirations; Negative Accessory Resp Muscle Use
Cardiac: Regular Rhythm and S1/S2
GI: Soft, Nontender, Nondistended and Normal Bowel Sounds
Skin: Warm and Dry
Neuro: Awake, Alert, Oriented, AO x 3 and Nonfocal/Grossly Intact
Psych: Calm and Intact Judgement/Insight
Data Reviewed
-
Medical Tests (Nuc Med, Echo etc): Report Reviewed by me (cath report )
Labs: Labs Reviewed by me
[2023-12-10] MEDS: ROXICODONE 15 MG PO ×3 (09:52→20:02)
[2023-12-10] MEDS: PROZAC 60 MG PO (09:54)
[2023-12-10] MEDS: PLAVIX 75 MG PO (09:54)
[2023-12-10] MEDS: LOW STRENGTH ASPIRIN 81 MG PO (09:54)
[2023-12-10] MEDS: TOPROL XL 25 MG PO (09:54)
[2023-12-10 14:12] LABS: ACT-LR - POC 279 Seconds (116-155)
[2023-12-10 14:41] LABS: ACT-LR - POC 271 Seconds (116-155)
--- NOTE | 2023-12-10 15:00 | ITS.CL.CATH ---
Casket Upholsterer - Catheterization
Cardiac Catheterization
Procedure Report:
LEFT HEART CATHETERIZATION
Date of Procedure: December 10, 2023
Referring: Michael Burden
PROCEDURES:
1. Selective left coronary angiogram.
2. Successful percutaneous coronary artery intervention to 95% in-stent restenosis of mid left circumflex extending into OM 2 with one 2.5 x 22 mm Medtronic Abhi drug-eluting stent, postdilated using a 2.5 x 15 mm NC balloon at 16 lalita distally and
18 lalita proximally with an excellent angiographic result.
INDICATION: This is a 63-year-old gentleman with a prior history of coronary artery disease and emergent coronary artery bypass surgery in a hospital in [facility] in 2012. The postoperative course was complicated by an apical LAD
infarction possibly related to occlusion of the apical vein graft but subtended a small area of myocardium. He reportedly had bypass grafting to 5 vessels with a GOLDSTEIN-LAD, SVG-RCA, SVG-OM, SVG-diagonal, and SVG-apical LAD (?) in October 2019 he
presented with chest discomfort and abnormal stress test and underwent stenting of a diagonal branch with a 2.5 x 32 mm Promus stent and stenting of the mid circumflex with a 2.5 x 12 mm Promus stent. This admission he presented to [facility] for a vascular surgery appointment and reported chest discomfort starting approximately 2 weeks ago. He states that for 48 hours he had severe discomfort but since then had experienced low-grade persistent chest pain. His troponin was
found to be mildly elevated and he was referred for heart catheterization which he initially underwent about 48 hours ago and underwent intervention to saphenous vein graft to OM 2. He now presents for a planned staged intervention to in-stent
restenosis of mid left circumflex extending into OM 2.
ACCESS: Right radial artery, 6 Turkish sheath, under ultrasound guidance
HEMODYNAMICS : (mmHg)
AO (s/d) : 114/57
CORONARY ANGIOGRAPHY--given a full study was completed less than 48 hours ago, only a selective left coronary angiogram was performed on the study. Please see prior report from December 08, 2023 for details regarding remainder of the coronary
arteries and graft angiography.
Dominance: Right
LEFT MAIN: Left main is a medium caliber vessel which gives rise to left anterior descending artery and the left circumflex artery. There is mild diffuse atherosclerotic plaque.
LEFT ANTERIOR DESCENDING: The LAD arises normally from the left main and runs in the anterior interventricular groove. The LAD is occluded just beyond the diagonal branch. The distal vessel is noted to fill anterograde beyond the CHING graft
anastomosis and retrograde to the site of occlusion. The CHING graft on recent study appears widely patent. The proximal LAD before the diagonal branch has a 50-60% stenosis. The first diagonal branch has a long stented segment in its midportion.
The stent is widely patent.
CIRCUMFLEX: The circumflex supplies a small OM1 and terminates in a small to medium caliber OM 2. There is a stent in the mid circumflex extending to OM 2 and has a 95% segment of in-stent restenosis involving the distal one third of the stented
segment.
CORONARY INTERVENTION: The left coronary artery was selectively engaged using a 6 [place] EBU 3.75 guide catheter. Additional heparin was given to maintain a therapeutic ACT throughout the case. A 190 cm 0.014' power turn flex coronary wire was
carefully navigated across the mid left circumflex ISR into OM 2 distally. The lesion was predilated using a 2.25 x 15 mm semicompliant balloon and subsequently stented using a 2.5 x 22 mm Medtronic Abhi drug-eluting stent and postdilated using a
2.5 x 15 mm NC balloon at 16 lalita distally and 18 lalita proximally with an excellent angiographic result. HILDA-3 flow was noted into the distal vessel at the end of the case. No acute complications.
SEDATION: 64 minutes of procedural sedation was utilized. An independent chief medical director was present to assist with and help manage the patient's level of consciousness and physiologic status.
RADIATION SUMMARY: Fluoro Time (min): 9.5, Dose (mGy): 514.22, DAP (Gy.cm2) : 26.8
Closure Device: Vascular band over right radial artery, 10 cc of air.
CONCLUSIONS
1. Successful percutaneous coronary artery intervention to 95% in-stent restenosis of mid left circumflex extending into OM 2 with one 2.5 x 22 mm Medtronic [place] drug-eluting stent, postdilated using a 2.5 x 15 mm NC balloon at 16 lalita distally and
18 lalita proximally with an excellent angiographic result.
RECOMMENDATIONS
1. Continue dual antiplatelet therapy with daily baby aspirin and Plavix along with high intensity statin and beta-lc as tolerated.
2. Wean radial band per protocol.
3. Aggressive management of cardiovascular risk factors.
Lexi Roque MD, FACC, [facility]
[2023-12-10] MEDS: NSS 1000 IV (15:08)
[2023-12-10] MEDS: LOVENOX 40 MG SC (18:00)
[2023-12-10] MEDS: LIPITOR 40 MG PO (18:00)
--- NOTE | 2023-12-10 18:05 | PTCARENOTE ---
Received pt post cardiac cath. VSS. Right radial site w/ R band applied and intact. Pt denies any chest pain. Will monitor.
[2023-12-11] MEDS: ROXICODONE 15 MG PO ×2 (00:50→08:54)
[2023-12-11 04:26] VITALS: BP 120/80
[2023-12-11 05:16] LABS: Hematocrit 40.9 % (39.0-52.0); Mean Corp Hgb Conc. 34.2 g/dL (33.0-37.0); Mean Corpuscular Hgb 29.7 pg (27.0-31.0); Mean Corpuscular Volume 86.7 fL (80.0-94.0); Platelet Count 231 10^3/uL (130-400); Red Blood Cell Count 4.72 10^6/uL (4.70-6.10); Red Cell Dist. Width 13.1 % (11.5-14.5); White Blood Cell Count 9.9 10^3/uL (4.8-10.8)
[2023-12-11 05:37] LABS: Blood Urea Nitrogen 13 mg/dl (9-20); Calcium 9.3 mg/dl (8.4-10.2); Carbon Dioxide 20 mmol/L (22-30); Chloride 103 mmol/L (98-107); Estimated Creatinine Clearance 92 ml/min; Glucose 106 mg/dl (70-99); Magnesium 2.3 mg/dl (1.6-2.3); Potassium 4.5 mmol/L (3.5-5.1); Sodium 138 mmol/L (135-145); eGFR > 60.00
[2023-12-11 06:00] VITALS: BMI 28.8
--- NOTE | 2023-12-11 08:23 | W.PN.HOSP.TC ---
Addendum entered and electronically signed by Divya River MD 12/11/23 12:17:
total DC time 36 min
Original Note:
Today's Communication/Plan
-
for DC today
Assessment / Plan
Assessment / Plan
HPI: 63-year-old male with PMH CAD s/p CABG and subsequent cardiac stenting, hypertension, hyperlipidemia; p/w exertional chest discomfort and shortness of breath ongoing for the past month.
His symptoms remain at rest today hence presented to the ER. He states that this feels like his prior myocardial infarction.
He denies to other symptoms.
Admit for CP for ACS work up.
A/P:
# CP due to ACS/NSTEMI
# Elevated troponin 2/2 NSTEMI
s/p SL nitro
s/p heparin drip
s/p cardiac cath: Successful stenting of SVG-OM 2 with a 3.5 x 30 mm [place] stent postdilated with a 3.5 mm NC balloon. Residual coronary disease in the [place] circumflex with in the distal one third of the previously placed stent where high-grade
in-stent restenosis is now noted. The GOLDSTEIN-LAD and SVG-RCA remained patent.
s/p staged PCI 12/09 to the mid circumflex/OM 3 area of in-stent restenosis
Cont DAPT with ASA and Plavix
Cont Lipitor 40 mg daily
Echo: Left ventricular ejection fraction is 50-55% by Garcia's method of discs. Normal diastolic function. Normal right ventricular size and function.
Card on board
# Essential hypertension
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
# Hyperlipidemia
LDL 79
Started Lipitor 40 mg daily
DVT ppx: Lovenox SQ
FC
DW Card team
Anticipated Discharge: Today
Subjective/Interval History
-
Date of Service: December 11, 2023
Objective Data
-
Labs:
Laboratory Results
12/11/23
04:51
WBC 9.9
Hgb 14.0
Hct 40.9
Plt Count 231
Sodium 138
Potassium 4.5
Chloride 103
Carbon Dioxide 20 L
BUN 13
Creatinine 0.9
Glucose 106 H
Calcium 9.3
Vital Signs:
Vital Signs
Temp Pulse Resp BP Pulse Ox
36.6 C 73 18 132/84 97
12/11/23 04:32 12/10/23 23:45 12/11/23 04:32 12/10/23 22:24 12/11/23 04:32
I&O
12/10/23 12/11/23 12/12/23
06:59 06:59 06:59
Intake Total 1440 / 1440 1400 / 1400
Balance 1440 / 1440 1400 / 1400
Review of Systems
-
All other systems: Reviewed and negative
Cardiac: Denies Chest Pain
Physical Exam
-
General: Well Developed, Well Nourished, No Apparent Distress, Comfortable and Conversant; Negative Respiratory Distress
HEENT: Normocephalic, Atraumatic, Nose Appears Normal and Ears Appear Normal; Negative Oxygen
Respiratory: Clear to Auscultation and Non Labored Respirations; Negative Accessory Resp Muscle Use
Cardiac: Regular Rhythm and S1/S2
GI: Soft, Nontender, Nondistended and Normal Bowel Sounds
Skin: Warm and Dry
Neuro: Awake, Alert, Oriented, AO x 3 and Nonfocal/Grossly Intact
Psych: Calm and Intact Judgement/Insight
Data Reviewed
-
Medical Tests (Nuc Med, Echo etc): Report Reviewed by me (cath report )
Labs: Labs Reviewed by me
[2023-12-11 08:45] VITALS: BP 131/78
[2023-12-11] MEDS: TOPROL XL 25 MG PO (08:50)
[2023-12-11] MEDS: LOW STRENGTH ASPIRIN 81 MG PO (08:51)
[2023-12-11] MEDS: PROZAC 60 MG PO (08:51)
[2023-12-11] MEDS: PLAVIX 75 MG PO (08:51)
--- NOTE | 2023-12-11 09:05 | W.PN.CARDCBS ---
Today's Communication / Plan
-
Ready for discharge
Continue DAPT, statin, beta-lc
Cardiac rehab and cardiology follow-up appointment have been arranged
Impression / Plan
-
PCP: Waldemar Moser MD
Primary planer tailer: none current, former Dr Young
Impression:
Chest pain
Non-ST elevation ME
CAD
s/p CABG with GOLDSTEIN-LAD, SVG-RCA, SVG-OM, SVG-diagonal, and SVG-apical LAD 2012
s/p 2.5 mm Promus BENNIE to mid Circ and 2.5 mm Promus BENNIE to Diag 10/2019
NSTEMI w/ peak Troponin 1.09, likely due to obstructive CAD including 95% and 90% stenoses in the SVG to OM2 graft and a 95% ISR of mid-circumflex to OM2 stent, now s/p 3.5 mm [place] BENNIE to SVG-OM-2 graft on 12/08/23 and PTCA stent of mid circumflex
to OM2 12/10/23.
Improved ICM EF previously 45% and now 55%
HTN
Hyperlipidemia
h/o apical thrombus 2012
Carotid stenosis
Chronic pain syndrome
Echo 07/2013: laminated apical thrombus EF 45-50%
Echo 06/2014: EF 50-55%, apical AK with repaired apical thrombus in LV
Echo 02/25/16: EF 55%
Echo 01/2019: EF 55-60%, mild cLVH, focal apical AK w/ thrombus noted, [place] 4.3- unchanged in size
Echo 12/09/23: EF 50-55%, apical AK, + apical thrombus, decreased in size compared to 02/16/19 echo
Plan:
-Patient with NSTEMI and peak Troponin 1.09 this admission. Patient had cardiac cath with SVG-OM-2 PCI 12/08/23. Staged repeat cath w/ PTCA, w/ stent mild LCIRC to OM2 12/10/23.
-cont DAPT with ASA/Plavix
-Outpatient dose of Toprol XL 25 mg daily has been continued.
-Cre stable at 0.9 (12/11/23) post cath x 2.
-LDL 79. New to atorvastatin 40 mg daily.
-Cardiac rehab consulted and appointment scheduled for 01/12/24
-Patient with h/o apical thrombus after ME in 2012 that was managed with warfarin. Echo pending for 12/09/23 showed stable apical thrombus, smaller in size compared to 02/08.
-Patient previously followed with Dr. Hector Boyd, but states that he is 'between cardiologists' since Dr. Young left a couple of years ago. He has been following with PCP. Has f/u apptmt with [facility] on 12/31/23.
Progress Note - Circular Ripsaw Operator
Subjective
Date of Service: December 11, 2023
Status post staged PTCA and stent of left circumflex to OM 12/10/23
Had PTCA and stent SVG to OM2 12/08/23
Chest pain resolved
Feels well, ready to go home
Objective
Labs:
12/11/23 04:51
12/11/23 04:51
Labs
Hgb 14.0 g/dL (13.0-18.0) 12/11/23 04:51
Hct 40.9 % (39.0-52.0) 12/11/23 04:51
Plt Count 231 10^3/uL (130-400) 12/11/23 04:51
PT 13.0 Sec (11.4-14.6) 12/08/23 11:37
INR 1.00 12/08/23 11:37
APTT Cancelled 12/08/23 20:00
Sodium 138 mmol/L (135-145) 12/11/23 04:51
Potassium 4.5 mmol/L (3.5-5.1) 12/11/23 04:51
BUN 13 mg/dl (-20) 12/11/23 04:51
Creatinine 0.9 mg/dL (0.7-1.3) 12/11/23 04:51
Glucose 106 mg/dl (70-99) H 12/11/23 04:51
Troponins
12/08/23 12/08/23 12/08/23
11:37 15:25 18:01
Troponin I 0.214 H* 0.574 H* D 1.090 H* D
12/08/23 12/09/23 12/09/23
23:19 00:00 03:43
Troponin I 0.996 H* Cancelled 0.720 H* D
Vital Signs and I&O:
Vital Signs
Temp Pulse Resp BP Pulse Ox
98.1 F 78 18 131/78 97
12/11/23 08:47 12/11/23 08:50 12/11/23 08:47 12/11/23 08:50 12/11/23 08:47
Vital Signs
Temp Pulse Resp BP Pulse Ox
98.1 F 78 18 131/78 97
12/11/23 08:47 12/11/23 08:50 12/11/23 08:47 12/11/23 08:50 12/11/23 08:47
Intake & Output
12/09/23 12/10/23 12/11/23 12/12/23
06:59 06:59 06:59 06:59
Intake Total 1005 / 1005 1440 / 1440 1400 / 1400
Output Total 600 / 600
Balance 405 / 405 1440 / 1440 1400 / 1400
Physical Exam
Physical Exam
GEN: No distress, awake, Ox3
HEENT: supple, anicteric, mmm
LUNGS: CTA, no wheezes/rales
CV: Reg, S1/S2, no murmur
ABD: soft, BS+, NT/ND
EXT: No edema, right radial cath puncture site with dressing, 2+ radial pulse. Right femoral Puncture site with mild bruising, no hematoma, no bruit. 2+ bilateral DP pulses
NEURO: Gross non-focal
SKIN: No rash
--- NOTE | 2023-12-11 09:12 | PTCARENOTE ---
assumed care of pt. pt continues to be sr on the monitor, hr in the 70s, vss. pt offers no complaints at this time. right radial and right groin is cdi. pt educated on plan of care and pt verbalized understanding. call hernandez within reach.
--- NOTE | 2023-12-11 09:23 | CM ---
CM following for DC planning needs.
Pt. for DC today. Order noted.
Met w/ patient at bedside. He feels prepared for DC and offers no concerns or needs.
Plan is for home, no needs.
--- NOTE | 2023-12-11 10:09 | W.CARD.POSTP ---
Post PCI Follow Up
Procedure
Procedure/Date: 12/10/23 Successful percutaneous coronary artery intervention to 95% in-stent restenosis of mid left circumflex extending into OM 2 with one 2.5 x 22 mm Medtronic [place] drug-eluting stent.
Subjective: denies cp, sob
Site
Site: Radial: Right and No ht/bleeding, distal pulses palpable
Tele / EKG
SR no sig ectopy
Labs
12/11/23 04:51
12/11/23 04:51
PT 13.0 Sec (11.4-14.6) 12/08/23 11:37
INR 1.00 12/08/23 11:37
APTT Cancelled 12/08/23 20:00
Magnesium 2.3 mg/dl (1.6-2.3) 12/11/23 04:51
Triglycerides 281 mg/dl (10-149) H 12/09/23 03:43
LDL Cholesterol, Calc 79 mg/dl 12/09/23 03:43
VLDL Cholesterol, Calc 56 mg/dl (0-30) H 12/09/23 03:43
HDL Cholesterol 36 mg/dl 12/09/23 03:43
DAPT Medication
DAPT Medication: Aspirin 81mg daily and Clopidogrel 75 mg daily
Plan
f/u DCA 12/30 @ 10:40am
--- NOTE | 2023-12-11 10:22 | PTCARENOTE ---
d/c instructions read to pt and pt verbalized understanding. iv and tele removed. pt left with belongings from room, educational packets and d/c instructions. pt left via wheelchair with volunteer.
--- NOTE | 2023-12-11 12:07 | W.DCSUMMARY ---
Discharge Summary
Discharge Data
Date of Admission: 12/08/23
Date of Discharge: 12/11/23
-
Pending Results: No
Hospital Course
Principal Diagnosis:
Acute chest syndrome/non-ST elevation myocardial infarction
Chronic Diagnoses:�
Acute chest syndrome status post bypass surgery
Essential hypertension
Hyperlipidemia
Consultations:�
Cardiology
Procedures:�
Staged cardiac catheterization:
12/08/23: Successful stenting of SVG-OM 2 with a 3.5 x 30 mm [place] stent postdilated with a 3.5 mm NC balloon. Residual coronary disease in the [place] circumflex with in the distal one third of the previously placed stent where high-grade in-stent
restenosis is now noted. The GOLDSTEIN-LAD and SVG-RCA remained patent.
12/09: stenting to the mid circumflex/OM 3 area of in-stent restenosis
Clinical course:�
This is a 63-year-old male with PMH CAD s/p CABG and subsequent cardiac stenting, hypertension, hyperlipidemia; p/w exertional chest discomfort and shortness of breath ongoing for the past month.
His symptoms remain at rest today hence presented to the ER. He states that this feels like his prior myocardial infarction.
He denies to other symptoms.
Admit for CP for ACS work up.
Problem 1:
Chest pain due to ACS/NSTEMI.
He underwent staged cardiac catheterization, with stenting in the SVG-OM 2 first on 12/08/2023, followed by PCI on 12/09 to the mid circumflex/OM 3 area of in-stent restenosis.
He has been informed to continue dual antiplatelet therapy with aspirin and Plavix going forward.
Lipitor 40 mg was started this admission which he can continue going forward as well.
As for the rest of his medical problems, they were stable during his hospital stay.
Discharge Plan
-
Patient Disposition: Home (Routine Discharge)
Discharge Diagnosis/Procedures: Coronary artery disease status post angioplasty and stent to Vein Graft-Obtuse Marginal artery (12/07), Angioplasty with stent to left circumflex artery (12/09)
Condition: Good
Diet: Low Cholesterol and Low Sodium
Driving Restrictions: No driving for 24 hours
Other Services: Cardiac Rehab
Stand Alone Forms: DC Instructions- Cath/EP Lab
Referrals:
[facility] Cardiac Rehab [Outside] - 01/12/24 10:30 am
(Cardiac Rehab Orientation appointment is on Jan 11 1030 am.
The Cardiac Rehab gym is located on the first floor of the [facility].)
Kandy Cline PA-C [Specified Professional Personl] - 12/31/23 10:40 am (Cardiology followup appointment)
Waldemar Moser MD [Family Provider] - in less than 1 week
Prescriptions:
New
atorvastatin 40 mg Tablet
40 mg PO QPM Qty: 30 0RF
Continued
fluoxetine 20 MG capsule
60 mg PO DAILY
oxycodone 15 mg Tablet
15 mg PO Q4HPRN PRN (Reason: severe pains)
metoprolol succinate [Toprol XL] 25 mg Tablet Extended Release 24 Hr
25 mg PO DAILY
clopidogrel [Plavix] 75 mg Tablet
75 mg PO DAILY Qty: 30 0RF
aspirin 81 MG tablet,chewable
81 mg PO DAILY Qty: 30 0RF
Discharge Orders:
Discharge Patient (As Directed); Ordered 12/11/23
Ordered By: Divya River
Care Plan Goals
Care Plan Goals:
Problem: Readiness for enhanced knowledge related to diagnosis and treatment plan
Goal: Understand your diagnosis and treatment plan needs, including medications if applicable.
Instructions: Know your diagnosis, underlying causes and treatment plan options, including medications if applicable. Consult with your health care team to learn about your diagnosis and treatment plan, including medications if applicable.
Discharge Date and Time
Discharge Date/Time: 12/11/23 10:28
Print Language: NORWEGIAN
--- NOTE | 2023-12-15 11:28 | PN.CDI ---
CDI
- -
CDI:
Physician Documentation Request
Admit Date: 12/08/23 13:51
Dear Cardiology,
Please review the following and provide your response in the progress notes.
Clinical Indicators:
Pt admitted with NSTEMI.
12/07 Dance Master: ' Successful stenting of SVG-OM 2 with a 3.5 x 30 mm Abhi stent postdilated with a 3.5 mm NC balloon
Residual coronary disease in the [place] circumflex with in the distal one third of the previously placed stent where high-grade in-stent restenosis is now noted'
12/09 slab polisher: ' Successful percutaneous coronary artery intervention to 95% in-stent restenosis of mid left circumflex extending into OM 2 with one 2.5 x 22 mm Medtronic Abhi drug-eluting stent, postdilated using a 2.5 x 15 mm NC balloon at 16 lalita
distally and 18 lalita proximally with an excellent angiographic result.
Based on the above, could you clarify in the progress notes, the suspected vessel that caused the NSTEMI, that supports the above documentation and additional evaluation, monitoring and/or treatment rendered:
In-stent restenosis of the mid left circumflex
SVG to OM2
Combination of restenosed left circumflex and SVG to OM2
Other
Unable to determine
Use of terms such as suspected, likely, concern for, or probable (associated with a specific diagnosis that is being evaluated, monitored, or treated as if it exists) are acceptable and can be coded in the inpatient setting, when documented at the
time of discharge.
Thank you,
Libia Anaya RN, BSN
CDI Specialist
Available via [place] Text
Please use your independent medical judgment in providing your response.
== END 2023-12-11 10:28 | disposition home or self-care (01) | DRG 321 ==
LOC: IVU 13:51
PROVIDERS: Internal Medicine Interventional Cardiology; Physician Assistant; ADMITTING PHYSICIAN Internal Medicine; CONSULT PHYSICIAN Internal Medicine Cardiovascular Disease; EMERGENCY PHYSICIAN Student in an Organized Health Care Education/Training Program; FAMILY PHYSICIAN Internal Medicine
PROC: B2111ZZ Fluoroscopy of Multiple Coronary Arteries using Low Osmolar Contrast (ICD-10-PCS; 2023-12-08)
PROC: B2181ZZ Fluoroscopy of Left Internal Mammary Bypass Graft using Low Osmolar Contrast (ICD-10-PCS; 2023-12-08)
PROC: B3101ZZ Fluoroscopy of Thoracic Aorta using Low Osmolar Contrast (ICD-10-PCS; 2023-12-08)
PROC: B2151ZZ Fluoroscopy of Left Heart using Low Osmolar Contrast (ICD-10-PCS; 2023-12-08)
PROC: B2131ZZ Fluoroscopy of Multiple Coronary Artery Bypass Grafts using Low Osmolar Contrast (ICD-10-PCS; 2023-12-08)
PROC: 027034Z Dilation of Coronary Artery, One Artery with Drug-eluting Intraluminal Device, Percutaneous Approach (ICD-10-PCS; 2023-12-08)
PROC: 4A023N7 Measurement of Cardiac Sampling and Pressure, Left Heart, Percutaneous Approach (ICD-10-PCS; 2023-12-08)
DX: T82.855A Stenosis of coronary artery stent, initial encounter (principal); I21.4 Non-ST elevation (NSTEMI) myocardial infarction; I25.110 Atherosclerotic heart disease of native coronary artery with unstable angina pectoris; I25.710 Atherosclerosis of autologous vein coronary artery bypass graft(s) with unstable angina pectoris; I10 Essential (primary) hypertension; E78.2 Mixed hyperlipidemia; I25.5 Ischemic cardiomyopathy; I65.22 Occlusion and stenosis of left carotid artery; G89.4 Chronic pain syndrome; Y83.1 Surgical operation with implant of artificial internal device as the cause of abnormal reaction of the patient, or of later complication, without mention of misadventure at the time of the procedure; Z95.1 Presence of aortocoronary bypass graft; Z95.5 Presence of coronary angioplasty implant and graft; I25.2 Old myocardial infarction; Z87.891 Personal history of nicotine dependence; Z79.82 Long term (current) use of aspirin; Z79.02 Long term (current) use of antithrombotics/antiplatelets; Z79.891 Long term (current) use of opiate analgesic; Z82.49 Family history of ischemic heart disease and other diseases of the circulatory system; Z91.199 Patient's noncompliance with other medical treatment and regimen due to unspecified reason; Z98.1 Arthrodesis status
CPT/HCPCS: 71045; 80048; 80053; 80061; 83735; 84484; 85025; 85027; 85347; 85610; 85730; 93005; 93306; 93459; 93567; 99152; 99153; 99285; C1725; C1760; C1769; C1874; C1884; C1887; C1894; C9600; C9604; Q9950; Q9967

== ENCOUNTER → 2024-05-25 12:39 | Outpatient (REF) | payer MEDICARE, OTHER, SELFPAY | LOC: EMG 12:39 | PROVIDERS: ATTENDING PHYSICIAN Orthopaedic Surgery Hand Surgery; FAMILY PHYSICIAN Internal Medicine | DX: R20.9 Unspecified disturbances of skin sensation (principal); G56.03 Carpal tunnel syndrome, bilateral upper limbs | CPT/HCPCS: 95886; 95911 ==